=== PATIENT | female | born 1995 | race Caucasian/White ===

== ENCOUNTER 2018-08-13 18:56 | Emergency (ER) | payer MEDICAID ==
[~2018-08-13] VITALS: Ht 162.6 cm; Wt 69.9 kg
[2018-08-13 19:48] VITALS: Ht 162.6 cm; Wt 69.9 kg
--- NOTE | 2018-08-14 02:42 | ERD ---
ER Documentation Chief Complaint Chief Complaint abd pain last night 10 weeks . denies vag bleed HPI 23 year old female 10 weeks p presents to the ED complaining of mild intermittent crampy pelvic pain 1 day. Patient denies any vaginal bleeding, dysuria, fevers. She denies any nausea. Patient does not have an RADIO STATION OPERATOR ROS All systems reviewed and are negative except as per history of present illness. Allergies Allergies: Coded Allergies: No Known Allergy (Unverified , 08/13/18) PMhx/Soc Medical and Surgical Hx: pt denies Medical Hx, pt denies Surgical Hx Hx Alcohol Use: No Hx Substance Use: No Hx Tobacco Use: No Smoking Status: Never smoker Physical Exam Vitals Vital Signs Date Temp Pulse Resp B/P (MAP) Pulse Ox O2 O2 Flow FiO2 Time Delivery Rate 08/13/18 98.4 59 18 108/54 100 19:48 (72) Physical Exam Const: No acute distress Head: Atraumatic Eyes: Normal Conjunctiva ENT: Normal External Ears, Nose and Mouth. Neck: Full range of motion. No meningismus. Resp: Clear to auscultation bilaterally Cardio: Regular rate and rhythm, no murmurs Abd: Soft, non tender, non distended. Normal bowel sounds Skin: No petechiae or rashes Back: No midline or flank tenderness Ext: No cyanosis, or edema Neur: Awake and alert Psych: Normal Mood and Affect Result Diagram: 08/13/18 1679 Results 24 hrs Laboratory Tests Test 08/13/18 23:58 08/14/18 00:50 White Blood Count 7.8 10^3/ul Red Blood Count 4.41 10^6/ul Hemoglobin 13.4 g/dl Hematocrit 39.9 % Mean Corpuscular Volume 90.5 fl Mean Corpuscular Hemoglobin 30.4 pg Mean Corpuscular Hemoglobin Concent 33.6 g/dl Red Cell Distribution Width 13.8 % Platelet Count 233 10^3/UL Mean Platelet Volume 10.7 fl Immature Granulocytes % 0.300 % Neutrophils % 73.3 % Lymphocytes % 21.6 % Monocytes % 4.2 % Eosinophils % 0.3 % Basophils % 0.3 % Nucleated Red Blood Cells % 0.0 /100WBC Immature Granulocytes # 0.020 10^3/ul Neutrophils # 5.7 10^3/ul Lymphocytes # 1.7 10^3/ul Monocytes # 0.3 10^3/ul Eosinophils # 0.0 10^3/ul Basophils # 0.0 10^3/ul Nucleated Red Blood Cells # 0.0 10^3/ul Beta HCG, Quantitative 788976.0 mIU/ml Urine Color YELLOW Urine Clarity CLEAR Urine pH 5.0 Urine Specific [place] 1.005 Urine Ketones NEGATIVE mg/dL Urine Nitrite NEGATIVE mg/dL Urine Bilirubin NEGATIVE mg/dL Urine Urobilinogen 0.2 E.U./dL mg/dL Urine Leukocyte Esterase NEGATIVE [place]/ul Urine Hemoglobin NEGATIVE mg/dL Urine Glucose NEGATIVE mg/dL Urine Total Protein NEGATIVE mg/dl Procedures/MDM This is a well-appearing 23-year-old old female who is 10 weeks presents to the ED complaining of mild intermittent crampy pelvic pain. There was no evidence of urinary tract infection. Ultrasound was within normal limits. Low Suspicion for torsion or emergent pathology at this time. I have reassessed patient she feels better. She stable to be discharged home to continue to follow-up with an RADIO STATION OPERATOR tomorrow. Return precautions given she understands agrees this plan OB US 1. Single intrauterine is identified with heart rate of 171 and estimated gestational age by ultrasound of 9 weeks 5 days +/- 5 days. 2. Neither ovary is visualized. Departure Diagnosis: Primary Impression: Pelvic pain during Condition: Stable Patient Instructions: Pelvic Pain In : Unclear (2-3 Trimester) Referrals: RADIO STATION OPER[place] [id number] [facility] [address] [place], [place] [phone] OFFICE FAX KETURAH BORDEN [address] [place], [place] [phone] DR. ROSARIO WAW[place]ING [address] [place], [place] [id number] [place] [address] [facility], [address] [address] [address]ICKY [address]ENEZES [address] [place], [place] [id number] [facility] [address] [place], [place] [id number] [address] [facility] [facility] [id number] - [address] ANTONIO, NATHALIE [address], [facility] [phone] DR CARDOSO, JONATHAN [id number] [facility]. [address], [facility] [address] [address] MONREAL, [place] [address] [place], [place] [phone] Additional Instructions: Por favor betsy un seguimiento con un gineclogo maana. Regrese a estas instalaciones si no se mejora reno esperbamos o reno le dijimos. BISHOP PEACE PA-C Aug 14, 2018 02:42
[2018-08-14 03:13] VITALS: BP 102/54; PULSE 68; RESP 18
== END 2018-08-14 03:14 | disposition home or self-care (01) ==
LOC: FTE 18:56
DX: O26.891 Other specified pregnancy related conditions, first trimester (principal); R10.2 Pelvic and perineal pain; Z3A.09 9 weeks gestation of pregnancy
CPT/HCPCS: 36415; 76801; 81003; 84702; 85025; 86900; 86901; 87086; 87591; Z7502

== ENCOUNTER 2018-10-09 12:36 | Emergency (ER) | payer MEDICAID ==
[~2018-10-09] VITALS: Wt 68.9 kg
[2018-10-09] MEDS ORDERED: SOD CHLORIDE 0.9% 1,000 ML IV STA (13:23)
[2018-10-09] MEDS ORDERED: NITR-58 PO (14:43)
--- NOTE | 2018-10-09 15:19 | ERD ---
ER Documentation Chief Complaint Chief Complaint palpitations, weakness bilat arms x2wks worsening. 18wks preg. no VB HPI Patient is a 23-year-old female with no medical problems who presents with weakness. She says that she has bilateral arm weakness and generalized weakness of the past 2 weeks. The symptoms are worse today. She has had no fevers. She has mild chest pain and bilateral hand pain. She said that she is approximately 18 weeks and goes to a local clinic for her primary and OB care. ROS All systems reviewed and are negative except as per history of present illness. Medications Home Meds Active Scripts Nitrofurantoin Monohyd Macrocr* (Macrobid*) 100 Mg Capsr, 100 MG PO BID for 7 Days, CAP Prov:JACKIE ALDANA MD 10/09/18 Allergies Allergies: Coded Allergies: No Known Allergy (Unverified , 10/09/18) PMhx/Soc Medical and Surgical Hx: pt denies Medical Hx, pt denies Surgical Hx Hx Alcohol Use: No Hx Substance Use: No Hx Tobacco Use: No Smoking Status: Never smoker FmHx Family History: No diabetes Physical Exam Vitals Vital Signs Date Temp Pulse Resp B/P (MAP) Pulse Ox O2 O2 Flow FiO2 Time Delivery Rate 10/09/18 60 18 101/66 100 Room Air 14:09 (78) 10/09/18 99.0 62 22 111/59 99 12:44 (76) Physical Exam Const: No acute distress Head: Atraumatic Eyes: Normal Conjunctiva ENT: Normal External Ears, Nose and Mouth. Neck: Full range of motion. No meningismus. Resp: Clear to auscultation bilaterally Cardio: Regular rate and rhythm, no murmurs Abd: Soft, non tender, non distended. Normal bowel sounds Skin: No petechiae or rashes Back: No midline or flank tenderness Ext: No cyanosis, or edema Neur: Awake and alert, cranial nerves II through XII are intact, strength is 5 out of 5 in all 4 extremities, no slurred speech Psych: Normal Mood and Affect Result Diagram: 10/09/18 1330 10/09/18 1330 Results 24 hrs Laboratory Tests Test 10/09/18 13:30 White Blood Count 7.4 10^3/ul Red Blood Count 3.85 10^6/ul Hemoglobin 12.1 g/dl Hematocrit 35.3 % Mean Corpuscular Volume 91.7 fl Mean Corpuscular Hemoglobin 31.4 pg Mean Corpuscular Hemoglobin Concent 34.3 g/dl Red Cell Distribution Width 14.1 % Platelet Count 192 10^3/UL Mean Platelet Volume 10.6 fl Immature Granulocytes % 0.700 % Neutrophils % 76.5 % Lymphocytes % 16.3 % Monocytes % 6.0 % Eosinophils % 0.4 % Basophils % 0.1 % Nucleated Red Blood Cells % 0.0 /100WBC Immature Granulocytes # 0.050 10^3/ul Neutrophils # 5.6 10^3/ul Lymphocytes # 1.2 10^3/ul Monocytes # 0.4 10^3/ul Eosinophils # 0.0 10^3/ul Basophils # 0.0 10^3/ul Nucleated Red Blood Cells # 0.0 10^3/ul Urine Color RED Urine Clarity CLOUDY Urine pH 7.0 Urine Specific [place] 1.001 Urine Ketones NEGATIVE mg/dL Urine Nitrite NEGATIVE mg/dL Urine Bilirubin NEGATIVE mg/dL Urine Urobilinogen NEGATIVE mg/dL Urine Leukocyte Esterase NEGATIVE [place]/ul Urine Microscopic RBC 1 /HPF Urine Microscopic WBC 12 /HPF Urine Squamous Epithelial Cells FEW /HPF Urine Bacteria MANY /HPF Urine Hemoglobin NEGATIVE mg/dL Urine Glucose NEGATIVE mg/dL Urine Total Protein NEGATIVE mg/dl Sodium Level 140 mmol/L Potassium Level 4.0 mmol/L Chloride Level 110 mmol/L Carbon Dioxide Level 21 mmol/L Anion Gap 9 Blood Urea Nitrogen 6 mg/dl Creatinine 0.58 mg/dl Est Glomerular Filtrat Rate mL/min > 60 mL/min Glucose Level 99 mg/dl Calcium Level 9.7 mg/dl Total Bilirubin 0.1 mg/dl Direct Bilirubin 0.00 mg/dl Indirect Bilirubin 0.1 mg/dl Aspartate Amino Transf (AST/SGOT) 15 IU/L Alanine Aminotransferase (ALT/SGPT) 19 IU/L Alkaline Phosphatase 68 IU/L Troponin I < 0.012 ng/ml Total Protein 7.0 g/dl Albumin 3.7 g/dl Globulin 3.30 g/dl Albumin/Globulin Ratio 1.12 Current Medications Medications Dose Sig/Arnie Start Time Status Last (Trade) Ordered Route PRN Stop Time Admin Dose Reason Admin Sodium 1,000 ml @ Q1H STAT 10/09/18 DC 10/09/18 Chloride 1,000 mls/hr IV 13:23 13:39 10/09/18 14:22 Procedures/MDM Ultrasound of the abdomen read by radiology. EKG read by me: Rate/Rhythm: Regular rate and rhythm at a rate of 67 Intervals: Normal Impression: No evidence of ischemia or arrhythmia Patient is a 23-year-old female presents with generalized weakness. Laboratory studies are normal. EKG shows no signs of acute ischemia. Ultrasound of the abdomen shows a 17-week fetus with heartbeat. The patient will be discharged and went to follow-up with her local clinic within 24-48 hours. She was given a liter of normal saline for fluid resuscitation. She can return for any worsening symptoms. She has a mild urinary tract infection and given the fact that she is I will treat her with Macrobid for 1 week. I doubt sepsis at this time. Departure Diagnosis: Primary Impression: Cystitis Additional Impression: Palpitations Condition: Fair Patient Instructions: Cystitis, Palpitations Referrals: Your clinic Additional Instructions: Llame al doctor MARISA y betsy mar NORA PARA DENTRO DE 1-2 NICOLE.Dgale a la secretaria que nosotros le instruimos hacer esta nora.Avise o llame si waldron condicin se empeora antes de la nora. Regresa aqui si peor o no mejor. JACKIE ALDANA MD Oct 09, 2018 15:19
[2018-10-09 16:20] VITALS: BP 99/52; PULSE 59; RESP 18
== END 2018-10-09 16:20 | disposition home or self-care (01) ==
LOC: E/R 12:36
DX: O23.12 Infections of bladder in pregnancy, second trimester (principal); R00.2 Palpitations; Z3A.17 17 weeks gestation of pregnancy
CPT/HCPCS: 36415; 76805; 80053; 81001; 84484; 85025; 93005; J7030; Z7502

== ENCOUNTER 2019-01-14 13:35 | Outpatient (CLI) | payer MEDICAID ==
[~2019-01-14] VITALS: Ht 160 cm; Wt 74.5 kg
[~2019-01-14 13:35] MED LIST: NITR-58 PO; PREN-93 PO
[2019-01-14 13:50] VITALS: BP 109/64; PULSE 75; Ht 160 cm; Wt 74.5 kg
[2019-01-14] MEDS ORDERED: CEFTRIAXONE 1 GM/50 ML (PMX) 50 ML IVPB ONE (16:30)
[2019-01-14] MEDS ORDERED: SOD CHLORIDE 0.9% 1,000 ML IV SCH (16:30)
[2019-01-14] MEDS ORDERED: LACTATED RINGER'S 1,000 ML IV SCH (16:30)
--- NOTE | 2019-01-14 18:04 | PN ---
Triage Information Date/Time Reason for visit: 23-year-old female 1 para 0 at 31 weeks gestation referred to triage for left-sided lower quadrant pain when walking and also initiation of urination Weeks of Gestation 31 /Para 1 para 0 Diabetes: none Hypertention: none Objective Vital Signs Date Temp Pulse Resp B/P (MAP) Pulse Ox O2 O2 Flow FiO2 Time Delivery Rate 01/14/19 98.4 75 109/64 Room Air 13:50 (79) Heart Rate: 140's Heart Rate Comments Reactive Contractions: >10 Minutes Apart (Occasional) Exam Long and closed Results/Medications Result Diagram: 01/14/19 1514 Results 24 hrs Laboratory Tests Test 01/14/19 13:30 01/14/19 15:14 Urine Color YELLOW Urine Clarity SLIGHTLY CLOUDY A Urine pH 7.0 Urine Specific [place] 1.019 Urine Ketones NEGATIVE Urine Nitrite NEGATIVE Urine Bilirubin NEGATIVE Urine Urobilinogen NEGATIVE Urine Leukocyte Esterase NEGATIVE Urine Microscopic RBC 0 Urine Microscopic WBC 1 Urine Squamous Epithelial Cells FEW Urine Mucus FEW A Urine Hemoglobin NEGATIVE Urine Glucose NEGATIVE Urine Total Protein NEGATIVE White Blood Count 7.9 Red Blood Count 3.33 L Hemoglobin 10.9 L Hematocrit 32.3 L Mean Corpuscular Volume 97.0 Mean Corpuscular Hemoglobin 32.7 Mean Corpuscular Hemoglobin Concent 33.7 Red Cell Distribution Width 13.2 Platelet Count 181 Mean Platelet Volume 10.7 H Immature Granulocytes % 1.100 H Neutrophils % 78.9 H Lymphocytes % 13.4 L Monocytes % 5.3 Eosinophils % 0.9 Basophils % 0.4 Nucleated Red Blood Cells % 0.0 Immature Granulocytes # 0.090 H Neutrophils # 6.3 Lymphocytes # 1.1 Monocytes # 0.4 Eosinophils # 0.1 Basophils # 0.0 Nucleated Red Blood Cells # 0.0 Medications Current Medications Sodium Chloride 1,000 ml @ 250 mls/hr Q4H IV Last administered on 01/14/19at 16:30; Admin Dose 250 MLS/HR; Start 01/14/19 at 16:30 Imaging Results Biophysical profile is pending and cervical length is 3.6 cm Disposition: Discharge Assessment/Plan Patient's minimal contractions subsided after administration of subcutaneous terbutaline Patient was empirically treated for UTI We will follow patient as outpatient and place patient in bed and pelvic rest until delivery VICKY GANDARA MD Jan 14, 2019 18:04
[2019-01-14] MEDS ORDERED: TERBUTALINE 1 MG/ML INJ SC ONE (18:30)
--- NOTE | 2019-01-14 19:22 | TRIAGE ---
OB Triage Datetime Report Generated by CPN: 01/14/2019 19:22 Datetime: 01/14/2019 18:00 Stage of : OB Triage Maternal Assessment Level of Consciousness: Keenly Alert, Responsive Labor Evaluation Frequency: 3UC/HR Monitor Mode: External Duration (sec)2399: 60-100 Quality: Mild Resting Tone [place]: Relaxed Monitor Mode: ORDERS FOR LIMITED MONITORING Pain Assessment Pain Scale: 7 Pain Presence: Intermittent Pain Type: Cramping Pain Location: Abdomen Pain Goal: 3 Vaginal Exam Membrane Status: Intact Vaginal Bleeding: None Datetime: 01/14/2019 17:00 Stage of : OB Triage Maternal Assessment Level of Consciousness: Keenly Alert, Responsive Labor Evaluation Frequency: NONE Monitor Mode: External Resting Tone [place]: Relaxed Monitor Mode: ORDERS FOR LIMITED MONITORING Pain Assessment Pain Scale: 7 Pain Presence: Intermittent Pain Type: Cramping Pain Location: Abdomen Pain Goal: 3 Vaginal Exam Membrane Status: Intact Vaginal Bleeding: None Datetime: 01/14/2019 16:00 Stage of : OB Triage Maternal Assessment Level of Consciousness: Keenly Alert, Responsive Labor Evaluation Frequency: NONE Monitor Mode: External Resting Tone [place]: Relaxed Monitor Mode: ORDERS FOR LIMITED MONITORING Pain Assessment Pain Scale: 7 Pain Presence: Intermittent Pain Type: Cramping Pain Location: Abdomen Pain Goal: 3 Vaginal Exam Membrane Status: Intact Vaginal Bleeding: None Datetime: 01/14/2019 15:00 Stage of : OB Triage Maternal Assessment Level of Consciousness: Keenly Alert, Responsive Labor Evaluation Frequency: NONE Monitor Mode: External Resting Tone [place]: Relaxed Heart Rate FHR Baseline Rate: 135 Monitor Mode: External US Variability: Moderate 6-25 bpm Accelerations: 15X15 Decelerations: None Category: Category I Pain Assessment Pain Scale: 7 Pain Presence: Intermittent Pain Type: Cramping Pain Location: Abdomen Pain Goal: 3 Vaginal Exam Membrane Status: Intact Vaginal Bleeding: None Datetime: 01/14/2019 13:48 Assessment Type: Triage Maternal Assessment Level of Consciousness: Keenly Alert, Responsive DTR's/Clonus: DTRs 2+; No Clonus Headache: Denies Blurred Vision: No Respiratory Effort: Unlabored; Regular Rhythm; Equal Expansion Breath Sounds, Left: Clear and Equal Breath Sounds, Right: Clear and Equal Nausea/Vomiting: Denies RUQ Epigastric Pain: Denies Lower Extremities Edema: None Degree: None Upper Extremities Edema: None Degree: None Facial Edema: None Fall Risk Assessment History of Falling: (0) No Secondary Diagnosis: (0) No Ambulatory Aid: (0) Bedrest/Nurse Assist IV Therapy: (0) No Gait: (0) Normal/Bedrest/Immobile Mental Status: (0) Oriented to Own Ability Fall Score: 0 Fall Risk Score Definition: No Risk: No action required Datetime: 01/14/2019 13:47 Time of Arrival: 01/14/2019 13:24 EGA: 31.3 Arrived By: Ambulatory; Wheelchair Arrived From: Home Chief Complaint: pt. here C/O LLQ ABD. PAIN Movement: Present Contractions: Denies/Absent Rupture of Membranes: Denies Vaginal Bleeding: None Vaginal Discharge: Denies Recent Sexual Intercouse: Denies Abdominal Trauma: Not Applicable Patient Complaints: Cramping; Back Pain; Pain on Urination Time Provider Notified: 01/14/2019 14:40 Provider Notified: JARVIS Initial Plan: CBC/UA/CVL/ Datetime: 01/14/2019 13:43 Monitor Mode: External Monitor Mode: External US
== END 2019-01-14 18:55 | disposition home or self-care (01) ==
LOC: OBT 13:35 → L-D 13:39 → OBT 18:55
PROVIDERS: ATTEND Obstetrics & Gynecology
DX: O26.893 Other specified pregnancy related conditions, third trimester (principal); R10.32 Left lower quadrant pain; Z3A.31 31 weeks gestation of pregnancy
CPT/HCPCS: 36415; 76817; 76818; 81001; 81003; 85025; 87086; 96360; 96361; G0463; J0696; J3105; J7030

== ENCOUNTER 2019-03-01 13:09 | Outpatient (CLI) | payer MEDICAID ==
[~2019-03-01] VITALS: Ht 157.5 cm; Wt 75.7 kg
[~2019-03-01 13:09] MED LIST changes: +HYDR-4011 PO; +IBUP-1542 PO; -NITR-58 PO; +ONDA4TAB14 PO
[2019-03-01 14:17] VITALS: BP 104/62; PULSE 66; RESP 18; Ht 157.5 cm; Wt 75.7 kg
== END 2019-03-01 17:40 | disposition home or self-care (01) ==
LOC: OBT 13:09 → L-D 13:11 → OBT 17:40
PROVIDERS: ATTEND Obstetrics & Gynecology
DX: O41.03X0 Oligohydramnios, third trimester, not applicable or unspecified (principal); Z3A.38 38 weeks gestation of pregnancy
CPT/HCPCS: 76818; 85025; 86850; 86900; 86901; Z7500; G0463

== ENCOUNTER 2019-03-03 15:20 | Outpatient (CLI) | payer MEDICAID ==
[~2019-03-03] VITALS: Ht 157.5 cm; Wt 77.0 kg
[2019-03-03 15:57] VITALS: BP 109/56; PULSE 81; RESP 18; Ht 157.5 cm; Wt 77.0 kg
== END 2019-03-03 17:22 | disposition home or self-care (01) ==
LOC: OBT 15:20 → L-D 15:22 → OBT 17:22
PROVIDERS: ATTEND Obstetrics & Gynecology
DX: O41.93X0 Disorder of amniotic fluid and membranes, unspecified, third trimester, not applicable or unspecified (principal); Z3A.38 38 weeks gestation of pregnancy
CPT/HCPCS: 76818; G0463

== ENCOUNTER 2019-03-06 11:53 | Outpatient (CLI) | payer MEDICAID ==
[~2019-03-06] VITALS: Ht 157.5 cm; Wt 76.4 kg
[2019-03-06 12:13] VITALS: Ht 157.5 cm; Wt 76.4 kg
[2019-03-06 12:14] VITALS: BP 102/63; PULSE 72
== END 2019-03-06 14:34 | disposition home or self-care (01) ==
LOC: OBT 11:53 → L-D 11:54 → OBT 14:34
PROVIDERS: ATTEND Obstetrics & Gynecology
DX: O36.8130 Decreased fetal movements, third trimester, not applicable or unspecified (principal); Z3A.38 38 weeks gestation of pregnancy
CPT/HCPCS: 76815; 76818; Z7500; G0463